=== PATIENT | female | born 1975 | race Two or more races ===

== ENCOUNTER 2023-03-23 08:29 | Emergency (ER) | payer OTHER ==
[~2023-03-23] VITALS: Ht 167.6 cm; Wt 88.5 kg
[~2023-03-23 08:29] MED LIST: SEPTRA DS TABLE1 TAB PO; URETRON D-S TAB1 TAB PO
[2023-03-23] MEDS ORDERED: KETOROLAC TROMETHAMINE 60 MG VIAL IM ONE (09:00)
[2023-03-23 09:48] LABS: HEMATOCRIT 32.5 % (36.0-45.00); HEMOGLOBIN 10.7 g/dL (12.0-15.00); MEAN CELL VOLUME 80.4 fL (80.00-100.00); MEAN CORPUSCULAR HEMOGLOBIN 26.4 pg (27.00-32.0); MEAN CORPUSCULAR HGB CONC 32.8 g/dl (32.0-36.0); PLATELET COUNT 356 K/uL (150-450); RED BLOOD COUNT 4.05 M/uL (4.00-6.00)
[2023-03-23] MEDS ORDERED: METAXALONE800 MG PO (10:14)
[2023-03-23] MEDS ORDERED: ADVIL DUAL ACT1 EACH PO (10:14)
== END 2023-03-23 11:27 | disposition home or self-care (01) ==
LOC: ER 08:29
PROVIDERS: Emergency Medicine
DX: M62.830 Muscle spasm of back (principal)

== ENCOUNTER 2023-03-23 10:30 | Outpatient (CLI) | payer OTHER ==
[~2023-03-23 10:30] MED LIST changes: +ADVIL DUAL ACT1 EACH PO; +METAXALONE800 MG PO
[2023-03-23 11:01] LABS: HEMATOCRIT 33.1 % (36.0-45.00); HEMOGLOBIN 10.8 g/dL (12.0-15.00); MEAN CELL VOLUME 80.8 fL (80.00-100.00); MEAN CORPUSCULAR HEMOGLOBIN 26.3 pg (27.00-32.0); MEAN CORPUSCULAR HGB CONC 32.5 g/dl (32.0-36.0); PLATELET COUNT 343 K/uL (150-450); RED BLOOD COUNT 4.09 M/uL (4.00-6.00)
[2023-03-23 12:18] LABS: TSH 2.77 uIU/mL (0.358-3.74)
== END 2023-03-23 10:31 | disposition home or self-care (01) ==
LOC: LAB 10:30
DX: N93.8 Other specified abnormal uterine and vaginal bleeding (principal); Z12.39 Encounter for other screening for malignant neoplasm of breast

== ENCOUNTER → 2024-06-07 | Emergency (ER) | payer OTHER ==
[~2024-06-07] VITALS: Ht 167.6 cm; Wt 90.7 kg
[~2024-06-07] MED LIST changes: +BARIUM SULFATE 450 ML ORAL.SUSP PO ONE
[2024-06-07 09:32] LABS: HEMATOCRIT 31.3 % (36.0-45.00); HEMOGLOBIN 9.9 g/dL (12.0-15.00); MEAN CELL VOLUME 70.9 fL (80.00-100.00); MEAN CORPUSCULAR HEMOGLOBIN 22.5 pg (27.00-32.0); MEAN CORPUSCULAR HGB CONC 31.7 g/dl (32.0-36.0); PLATELET COUNT 383 K/uL (150-450); RED BLOOD COUNT 4.41 M/uL (4.00-6.00)
[2024-06-07 09:42] LABS: URINE APPEARANCE Clear; URINE BILIRRUBIN Negative (NEGATIVE); URINE BLOOD Large; URINE COLOR Yellow; URINE GLUCOSE Negative (NEGATIVE); URINE KETONE Negative (NEGATIVE); URINE LEUKOCYTE Negative; URINE NITRATE Negative; URINE PROTEIN Negative (NEGATIVE); URINE UROBILINOGEN 0.2 E.U./dl
[2024-06-07 09:48] LABS: URINE EPITHELIAL CELLS 3.9 uL (0.0-38.8); URINE RBC 615.2 uL (0.0-20.8); URINE WBC 4.5 uL (0.0-23.2)
[2024-06-07 09:58] LABS: CALCIUM 9.6 mg/dL (8.5-10.1); CREATININE SERUM 0.69 mg/dL (0.55-1.02); GFR 91.19; POTASSIUM 4.26 mEq/L (3.5-5.1)
== END | disposition home or self-care (01) ==
LOC: ER 08:14
PROVIDERS: Emergency Medicine
DX: R10.9 Unspecified abdominal pain (principal); Z90.13 Acquired absence of bilateral breasts and nipples